=== PATIENT | male | born 1990 | race Caucasian/White ===

== ENCOUNTER 2017-02-11 00:51 | Emergency (ER) | payer OTHER ==
[~2017-02-11] VITALS: Ht 172.7 cm; Wt 69.0 kg
[~2017-02-11 00:51] MED LIST: LORTAB 5-325 M1 EACH PO; NAPROSYN-EC500 MG PO
[2017-02-11 01:50] LABS: HEMATOCRIT 41.6 % (38.0-50.0); MCH 29.7 PG (29.0-34.0); MCHC 32.9 G/DL (30.0-36.0); MCV 90.2 FL (86-99); MEAN PLAT.VOLUME 10.8 uM^3 (9.0-12.4); PLATELET COUNT 160 K/uL (156-360); RBC DIS.WIDTH-CV 14.2 % (11.8-14.6); RBC DIS.WIDTH-SD 46.9 % (39-53); RED BLOOD COUNT 4.61 M/uL (4.00-5.50); WHITE BLOOD COUNT 12.1 K/uL (4.1-10.2)
[2017-02-11 02:02] LABS: CHLORIDE 106 mEq/L (99-109); POTASSIUM 3.8 mEq/L (3.7-5.4); SODIUM 138 mEq/L (136-147)
[2017-02-11 02:04] LABS: GLUCOSE 97 mg/dL (70-99)
[2017-02-11 02:05] LABS: ANION GAP 7 MEQ/L (2-14)
[2017-02-11 02:07] LABS: SERUM ETHYL ALCOHOL < 10 mg/dL
[2017-02-11 02:08] LABS: GFR ESTIMATE (CALCULATED) > 59 mL/min/
[2017-02-11 02:09] LABS: UREA NITROGEN (BUN) 15 mg/dL (9-23)
[2017-02-11] MEDS ORDERED: KEFLEX500 MG PO (03:28)
[2017-02-11] MEDS ORDERED: PERCOCET 5/31 TABLET PO (03:29)
[2017-02-11 03:51] VITALS: BP 136/96
== END 2017-02-11 03:52 | disposition home or self-care (01) ==
LOC: TRA 00:51 → EME 00:51 → TRA 03:52
PROVIDERS: Emergency Medicine
DX: S71.111A Laceration without foreign body, right thigh, initial encounter (principal); T79.7XXA Traumatic subcutaneous emphysema, initial encounter; X99.1XXA Assault by knife, initial encounter; F17.200 Nicotine dependence, unspecified, uncomplicated; Z23 Encounter for immunization
CPT/HCPCS: 73701; 80048; 85027; 99281; 99285; G0480; J3010; J7030

== ENCOUNTER 2017-02-16 12:21 | Emergency (ER) | payer OTHER ==
[~2017-02-16] VITALS: Ht 172.7 cm; Wt 68.5 kg
[~2017-02-16 12:21] MED LIST changes: +KEFLEX500 MG PO; +PERCOCET 5/31 TABLET PO
[2017-02-16] MEDS ORDERED: KEFLEX500 MG PO (13:47)
[2017-02-16] MEDS ORDERED: PERCOCET 5/31 TABLET PO (13:47)
[2017-02-16 14:14] VITALS: BP 141/91
== END 2017-02-16 14:16 | disposition home or self-care (01) ==
LOC: EME 12:21
DX: S81.811D Laceration without foreign body, right lower leg, subsequent encounter (principal); W26.9XXD Contact with unspecified sharp object(s), subsequent encounter; Z48.00 Encounter for change or removal of nonsurgical wound dressing; Z91.14 Patient's other noncompliance with medication regimen; Z59.0 Homelessness; F17.200 Nicotine dependence, unspecified, uncomplicated
CPT/HCPCS: 99281; 99284

== ENCOUNTER 2017-02-21 14:29 | Emergency (ER) | payer OTHER ==
[~2017-02-21] VITALS: Ht 172.7 cm; Wt 70.2 kg
[2017-02-21] MEDS ORDERED: NAPROSYN500 MG PO (18:59)
[2017-02-21] MEDS ORDERED: FLEXERIL10 MG PO (18:59)
[2017-02-21] MEDS ORDERED: LORTAB 5-325 M1 EACH PO (19:06)
[2017-02-21 19:16] VITALS: BP 127/77
== END 2017-02-21 19:18 | disposition home or self-care (01) ==
LOC: EME 14:29
DX: S01.511A Laceration without foreign body of lip, initial encounter (principal); S71.111D Laceration without foreign body, right thigh, subsequent encounter; Z48.02 Encounter for removal of sutures; Y04.0XXA Assault by unarmed brawl or fight, initial encounter; F17.200 Nicotine dependence, unspecified, uncomplicated; Z88.2 Allergy status to sulfonamides
CPT/HCPCS: 70150; 99281; 99283; J1885

== ENCOUNTER 2017-09-22 20:51 | Emergency (ER) | payer OTHER ==
[~2017-09-22 20:51] MED LIST changes: +FLEXERIL10 MG PO; +NAPROSYN500 MG PO
[2017-09-22 21:05] LABS: BASOPHIL (%) 0.4 % (0-1); EOSINOPHIL (%) 1.3 % (0-5); EOSINOPHIL COUNT 0.2 K/uL (0-0.3); HEMATOCRIT 48.1 % (38.0-50.0); HEMOGLOBIN 16.5 G/DL (12.5-16.6); IMMATURE GRANULOCYTE (%) 1.3 % (0.0-0.7); LYMPHOCYTE (%) 35.1 % (15-42); LYMPHOCYTE COUNT 3.9 K/uL (1.0-2.8); MCH 30.8 PG (29.0-34.0); MCHC 34.3 G/DL (30.0-36.0); MCV 89.9 FL (86-99); MONOCYTE (%) 8.1 % (3-12); MONOCYTE COUNT 0.9 K/uL (0-0.8); NEUTROPHIL (%) 53.8 % (45-76); PLATELET COUNT 210 K/uL (156-360); RBC DIS.WIDTH-CV 13.6 % (11.8-14.6); RBC DIS.WIDTH-SD 44.9 % (39-53); RED BLOOD COUNT 5.35 M/uL (4.00-5.50); WHITE BLOOD COUNT 11.2 K/uL (4.1-10.2)
[2017-09-22 21:16] LABS: AMYLASE 34 IU/L (1-118); CHLORIDE 106 mEq/L (99-109); POTASSIUM 3.3 mEq/L (3.7-5.4); SODIUM 144 mEq/L (136-147)
[2017-09-22 21:17] LABS: GLUCOSE 118 mg/dL (70-99)
[2017-09-22 21:20] LABS: SERUM ETHYL ALCOHOL 233 mg/dL
[2017-09-22 21:21] LABS: CREATININE 1.6 mg/dL (0.6-1.3); GFR ESTIMATE (CALCULATED) 55 mL/min/ (58.99-99999)
[2017-09-22 21:22] LABS: UREA NITROGEN (BUN) 10 mg/dL (9-23)
[2017-09-22 21:24] LABS: LIPASE 60 U/L (1.0-51.0)
== END 2017-09-23 03:59 | disposition home or self-care (01) ==
LOC: TRA 20:51
PROVIDERS: Emergency Medicine
PROC: 3E0234Z Introduction of Serum, Toxoid and Vaccine into Muscle, Percutaneous Approach (ICD-10-PCS; principal; 2017-09-22)
DX: S00.81XA Abrasion of other part of head, initial encounter (principal); S80.212A Abrasion, left knee, initial encounter; S80.211A Abrasion, right knee, initial encounter; S30.810A Abrasion of lower back and pelvis, initial encounter; S20.412A Abrasion of left back wall of thorax, initial encounter; S50.311A Abrasion of right elbow, initial encounter; T14.90XA Injury, unspecified, initial encounter; V03.10XA Pedestrian on foot injured in collision with car, pick-up truck or van in traffic accident, initial encounter; Y93.02 Activity, running; Y92.410 Unspecified street and highway as the place of occurrence of the external cause; F43.22 Adjustment disorder with anxiety; F17.200 Nicotine dependence, unspecified, uncomplicated; L02.01 Cutaneous abscess of face
CPT/HCPCS: 70450; 70486; 71260; 72125; 72129; 72132; 73560; 74177; 80048; 81003; 82150; 83690; 85025; 86850; 86900; 86901; 90839; 99281; 99285; G0480; J1630; J2060

== ENCOUNTER 2017-12-03 22:36 | Emergency (ER) | payer OTHER ==
[~2017-12-03] VITALS: Ht 167.6 cm; Wt 69.8 kg
[2017-12-04 01:19] VITALS: BP 128/67
== END 2017-12-04 01:20 ==
LOC: EME → EDBD 22:36 → EME 12-04 01:20
DX: S02.31XA Fracture of orbital floor, right side, initial encounter for closed fracture (principal); S02.2XXA Fracture of nasal bones, initial encounter for closed fracture; Y04.0XXA Assault by unarmed brawl or fight, initial encounter; Z88.2 Allergy status to sulfonamides; Z88.6 Allergy status to analgesic agent; F17.200 Nicotine dependence, unspecified, uncomplicated
CPT/HCPCS: 70450; 70486; 72125; 99281; 99284